=== PATIENT | female | born 1965 | race Caucasian/White ===

== ENCOUNTER → 2020-05-07 00:35 | Outpatient (CLI) | payer MEDICARE, SELFPAY ==
[2020-05-07 18:31] LABS: SARS-CoV-2 RNA PCR Negative
== END ==
PROVIDERS: PCP Family Medicine; Visit Provider Physician Assistant
DX: R05 Cough (principal); Z20.822 Contact with and (suspected) exposure to COVID-19
CPT/HCPCS: C9803; U0003; U0005

== ENCOUNTER 2023-11-22 07:49 | Outpatient (CLI) | payer MEDICARE, MEDICAID, SELFPAY ==
--- NOTE | ~2023-11-22 | XR_ITS ---
XR hip LT 2V w AP pelvis Ordering provider: Naila Cronin, [place] History: . NO INJURY LEFT HIP PAIN FOR 6-8 MONTHS . Comparison: None. FINDINGS: BONES: No acute fracture or dislocation. HIP JOINT SPACES: Mild osteoarthritic changes of both hips. SACROILIAC JOINT SPACES/LUMBAR SPINE: The sacroiliac joint spaces are normal. Mild degenerative najera es of the visualized lower lumbar spine. Postoperative changes in the lower lumbar area and in the abe almita. PUBIC SYMPHYSIS: Normal. SOFT TISSUES: Normal. IMPRESSION: No acute osseous abnormality pelvis and left hip. Mild osteoarthritic changes of both hips. Reviewed, dictated and finalized at location A.
--- NOTE | ~2023-11-22 | MR_ITS ---
EXAMINATION: MR hip LT wo con DATE: 11/22/2023 08:48 INDICATION: Left hip arthritis with chronic left hip pain TECHNIQUE: Magnetic resonance imaging (MRI) of the left hip was performed without intravenous contra st. Sequences included full-field axial fluid sensitive FSE STIR and T1-weighted FSE, coronal of the pelvis with fluid sensitive FSE STIR, T2-weighted FSE and T1-weighted FSE, small field of view of the left hip with axial PD-weighted FS FSE, sagittal PD-weighted FS FSE, coronal PD-weighted FS FSE an d coronal T2 weighted FSE. Additional radial T1-weighted FGR oriented orthogonal to the acetabular ri m were obtained for evaluation of the labrum. COMPARISON: None FINDINGS: Bones/labrum/cartilage: Alignment is normal. No fracture, avascular necrosis or pathologic marrow replacing process. There i s metallic magnetic field artifact in the lower lumbar spine with change of prior L3-L5 laminectomies , posterior spinal fusion with bilateral vertical annie and pedicle screw fixation extending from at le ast L3-S1 and with bilateral iliac screws. There are also likely interbody fusion device for anterior spinal fusion at L4-L5 and L5-S1. Mild left hip osteoarthritis with posterior predominant mild nonun iform joint space narrowing. Small tear at the anterosuperior left acetabular labrum. Fluid: Symmetric physiologic amount of fluid within both hip joints. Increased fluid signal consistent with mild left gluteus minimus and gluteus medius bursitis. Mild left and minimal right trochanteric bursi tis. Mild bilateral ischial bursitis, right greater than left. Soft tissues: Normal and symmetric muscle bulk and signal in the pelvis and visualized proximal thighs. Moderate le ft gluteus medius and mild left gluteus minimus tendinopathy without discrete tear. The bilateral el opsoas, right gluteal and bilateral proximal hamstring tendons are normal. Limited evaluation of visc eral organs of the pelvis is unremarkable. No pathologically enlarged pelvic/inguinal lymphadenopath y. Left paramedian anterior pelvic wall scar. IMPRESSION: 1. Mild left gluteus medias and minimus bursitis with moderate left gluteus medius tendinopathy and m ild left gluteus minimus tendinopathy without discrete tear. 2. Mild bilateral ischial bursitis as well as mild left and minimal right trochanteric bursitis. 3. Mild left hip osteoarthritis with small tear at the anterosuperior left acetabular labrum. 4. Postoperative changes in the lumbar and lumbosacral spine as detailed above. Reviewed, dictated and finalized at location A. IMPRESSION: 1. Mild left gluteus medias and minimus bursitis with moderate left gluteus med ius tendinopathy and mild left gluteus minimus tendinopathy without discrete te ar. 2. Mild bilateral ischial bursitis as well as mild left and minimal right troch anteric bursitis. 3. Mild left hip osteoarthritis with small tear at the anterosuperior left acet abular labrum. 4. Postoperative changes in the lumbar and lumbosacral spine as detailed above.
== END 2023-11-22 07:50 | disposition home or self-care (01) ==
PROVIDERS: PCP Family Medicine; Visit Provider Physician Assistant
DX: M70.72 Other bursitis of hip, left hip (principal); M70.71 Other bursitis of hip, right hip; M16.0 Bilateral primary osteoarthritis of hip
CPT/HCPCS: 73502; 73721